=== PATIENT | female | born 1960 | race Caucasian/White ===

== ENCOUNTER → 2021-12-20 15:13 | Outpatient (CLI) | payer OTHER, SELFPAY ==
--- NOTE | ~2021-12-20 | DEXA_ITS ---
Bone Density Report Name: HA ERGALADO Age: 61 Sex: Female Ethnicity: White Date of : 1960 Indication: osteopenia; parental hip fracture; inflammatory bowel disease; history of glucocorticoids; postmenopausal Referring Provider: SIL OWENS Study: Bone densitometry was performed. Exam Date: December 20, 2021 Accession number: [id number] Bone Density: Region BMD T-score Z-score Classification AP Spine (L1-L4) 0.872 -1.6 -0.1 Osteopenia Femoral Neck (Left) 0.584 -2.4 -1.0 Osteopenia Total Hip (Left) 0.741 -1.6 -0.6 Osteopenia Femoral Neck (Right) 0.564 -2.6 -1.2 Osteoporosis Total Hip (Right) 0.711 -1.9 -0.9 Osteopenia Total Hip Mean 0.726 -1.8 -0.8 Osteopenia World Health Organization criteria for BMD impression classify patients as: Normal (T-score at or above -1.0), Osteopenia (T-score between -1.0 and -2.5), or Osteoporosis (T-score at or below -2.5). 10-year Fracture Risk: FRAX not reported because: Some T-score for Spine Total or Hip Total or Femoral Neck at or below -2.5 Previous Exams: Region Exam Age BMD T-score BMD Change BMD Change Date g/cm2 vs Baseline vs Previous AP Spine(L1-L4) 12/20/2021 61 0.872 -1.6 -0.087* 0.004 05/21/2018 57 0.868 -1.6 -0.091* -0.015 07/20/2015 54 0.884 -1.5 -0.075* -0.011 01/26/2013 52 0.894 -1.4 -0.065* -0.065* 12/14/2010 50 0.959 -0.8 Total Hip(Left) 12/20/2021 61 0.741 -1.6 -0.095* -0.007 05/21/2018 57 0.749 -1.6 -0.087* -0.046* 07/20/2015 54 0.795 -1.2 -0.041* 0.042* 01/26/2013 52 0.753 -1.5 -0.083* -0.083* 12/14/2010 50 0.836 -0.9 Total Hip(Right) 12/20/2021 61 0.711 -1.9 -0.072* -0.025 05/21/2018 57 0.736 -1.7 -0.047* -0.029* 07/20/2015 54 0.765 -1.4 -0.018 0.028* 01/26/2013 52 0.737 -1.7 -0.046* -0.046* 12/14/2010 50 0.783 -1.3 *Denotes significance at 95% confidence level, LSC for AP Spine = 0.022 g/cm2, LSC for Total Hip = 0.027 g/cm2 Clinical Information Provided by Patient: Parent has had a hip fracture Has taken Glucocorticoids Has used the following medications: Vitamin D, Calcium, MTV, LEVOTHYROXINE Has the following medical conditions: Inflammatory bowel diseases, ORAL PREDNISONE IN 1994 X 6 MONTHS FOR CHRONS Patient maximum height was 66.7 Menopause Age: 50 Drinks caffeinated b
== END ==
DX: K50.012 Crohn's disease of small intestine with intestinal obstruction (principal); M85.88 Other specified disorders of bone density and structure, other site; M85.852 Other specified disorders of bone density and structure, left thigh; M85.851 Other specified disorders of bone density and structure, right thigh; M81.0 Age-related osteoporosis without current pathological fracture
CPT/HCPCS: 77080

== ENCOUNTER 2024-10-19 09:59 | Outpatient (CLI) | payer OTHER, SELFPAY ==
--- NOTE | ~2024-10-19 | DEXA_ITS ---
Bone Density Report Name: HA REGALADO Age: 64 Sex: Female Ethnicity: White Date of : 1960 Indication: postmenopausal; screening for osteoporosis; parental hip fracture; inflammatory bowel disease; Referring Provider: UNKNOWN, UNKNOWN Study: Bone densitometry was performed. Exam Date: October 19, 2024 Accession number: [id number] Bone Density: Region BMD T-score Z-score Classification AP Spine(L1, L2, L3) 0.861 -1.4 0.2 Osteopenia Femoral Neck (Left) 0.601 -2.2 -0.8 Osteopenia Total Hip (Left) 0.741 -1.6 -0.5 Osteopenia Femoral Neck (Right) 0.595 -2.3 -0.8 Osteopenia Total Hip (Right) 0.767 -1.4 -0.3 Osteopenia Total Hip Mean 0.754 -1.5 -0.4 Osteopenia World Health Organization criteria for BMD impression classify patients as: Normal (T-score at or above -1.0), Osteopenia (T-score between -1.0 and -2.5), or Osteoporosis (T-score at or below -2.5). 10-year Fracture Risk(1): Major Osteoporotic Fracture 21% Hip Fracture 2.1% Reported Risk Factors: [place] (), Neck BMD=0.595, BMI=25.4, parental fracture (1) FRAX(R) Version 3.08. Fracture probability calculated for an untreated patient. Fracture probability may be lower if the patient has received treatment. Clinical Information Provided by Patient: Parent has had a hip fracture Has used the following medications: Vitamin D, Calcium Has the following medical conditions: Inflammatory bowel diseases Patient maximum height was 67 Menopause Age: 50 No regular weight bearing exercise Drinks caffeinated beverages Onset of menses at age 12 Number of children 2 Impression: The patient has low bone mass, based on the Right Femoral Neck T-score. The patient has an estimated ten-year risk of hip fracture of 2.1% and an estimated ten-year risk of major fracture of 21%, based on the WHO FRAX algorithm. The patient has risk factors, including: parental hip fracture. Discussion: BONE DENSITY IS LOW AT ONE OR MORE SKELETAL SITES. THE PATIENT'S BMD AND CLINICAL RISK FACTORS CONTRIBUTE TO THIS PATIENT'S INCREASED RISK OF FRACTURE. This patient's lowest T-score is low at one or more skeletal sites. It meets the World Health Organization's (WHO) criteria for ?low bone mass? (T-score between -1.0 and -2.5). The patient's 10-year risk of a major osteoporotic fracture as calculated by FRAX exceeds the threshold where pharmacological therapy is recommended by the National Osteoporosis Foundation (NOF). However, all treatment decisions require clinical judgment and consideration of individual patient factors, including patient preferences, comorbidities, previous drug use, risk factors not captured in the FRAX model (e.g., frailty, falls, vitamin D deficiency, increased bone turnover, interval significant decline in bone density) and possible under or overestimation of fracture risk by FRAX. The patient should follow a healthful lifestyle (good nutrition with adequate calcium and vitamin D, and appropriate weight-bearing exercise). Follow-Up: Consider a repeat BMD and Vertebral Fracture Assessment (VFA) exam in 2 years or sooner if medically necessary, to reassess this patient's status. Reported by: DEAN on 10/19/2024 10:48:00 AM. Reviewed, dictated and finalized at location A.
--- OUTSIDE RECORDS SUMMARY | 2024-10-19 10:05 | XMS_ITS | Encounter Summary ---
Author Organization [facility] Address [facility] [place] [address] Care Team Providers Care Make Up Editor Name Role Phone Christiane Woods NP Primary Care Provider [phone] Encounter Details Date Type Department Care Team (Late st Contact Info) Description 05/18/2024 [employer] Message Enc [facility] Family & Internal Medicine [facility] [id number] [place] [phone] Sara, [facility] Provider . Social History Tobacco Use Types Packs/Day Years Used Date Smoking Tobacco: Never Passive Smoke Exposure: Never Smokeless Tobacco: Never Alcohol Use Standard Drinks/Week Comments Yes 0 (1 standard drink = 0.6 oz pur e alcohol) Socially PHQ-2 Answer Date Recorded Patient Health Questionnaire-2 Score 0 04/29/2024 Comments No Sex and Gender Information Value Date Recorded Sex Assigned at Female 04/29/2024 11:43 AM COMPUTER AIDE Legal Sex Female 2:49 PM CDT Gender Identity Not on file Sexual Orientation Not on file documented as of this encounter Plan of Treatment Not on file documented as of this encounter Visit Diagnoses Not on filedocumented in this encounter Care Teams Make Up Editor Relationship Specialty Start Date End Date Christiane [place] [id number] [place] [phone] PCP - General Nurse Practitioner Family 02/24/23 documented as of this encounter
--- OUTSIDE RECORDS SUMMARY | 2024-10-19 10:05 | XMS_ITS | Clinical Summary ---
Author Organization [facility] [employer] Address [address] [place] [address] Care Team Providers Care Director Of Catering Name Role Phone Shiela Frankel MD [facility] Mims VEGETABLE HARVEST MACHINE OPERATOR-SEISMIC PLOTTER Primary Care Provider Source Comments [facility],non-owned Affiliates and Associated Physician Practices is amultiple site organization consisting of ambulatory clinics and hospital sitesin [place], [place], [place] and [place]. This disclosure is being madepursuant to the Care Everywhere program and may not contain all information available regarding this patient. Last updated 17.[facility] [employer] Allergies Active Allergy Reactions Criticality Noted Date Comments Amoxicillin Diarrhea Low 06/08/2019 Medications * Be aware that medications may not be up to date on this document. Alwaysverify current medications with the patient. MULTIPLE VITAMIN PO Take 1 tablet by mouth once daily 02/18/20 24 Active [place]-3 Fatty Acids (FISH OIL PO) Take 1,000 mg by mouth once daily Active Vitamin D3, cholecalciferol, 2000 UNITS tablet Take 1 (one) tablet by mouth once daily 2 tab ekmxt=2912 units 02/18/20 24 Active Misc Natural Products (TURMERIC CURCUMIN) Take 1 tablet by mouth once daily 02/18/20 24 Active calcium citrate TABS tablet Take 6 (six) tablets by mouth once daily 02/18/20 24 Active SYNTHROID 150 MCG tablet TAKE 1 TABLET BY MOUTH EVERY DAY 90 tablet 2 06/19/19 22 Active loratadine (Claritin) 10 MG tablet Take 1 (one) tablet by mouth once daily 02/18/20 24 Active Cyanocobalamin (VITAMIN B-12 1000 MCG) 1000 MCG SUBL Dissolve 1 tablet under the tongue once daily 02/18/20 24 Active risankizumab-rza a (Skyrizi) 360 MG/2.4ML SOCTIndications: Crohn's disease of both small and large intestine without complication (HCC) Inject 2.4 mL subcutaneously Every 8 Weeks 2.4 mL 6 04/12/19 25 Active Iron, Ferrous Sulfate, 325 (65 Fe) MG TABS Take 1 tablet by mouth once daily 02/18/20 24 025 Discontin ued(List Clean-Up) Active Problems Problem Noted Date Diagnosed Date Iron deficiency 09/07/2024 Mixed hyperlipidemia 06/18/2023 Right lateral epicondylitis 08/30/2022 Hypothyroid 09/18/2021 Lipoma 09/18/2021 Adhesive capsulitis of left shoulder 02/02/2021 Inflamed seborrheic keratosis 08/22/2018 Multiple benign melanocytic nevi of upper and lower extremities and trunk 08/22/2018 Lichen simplex chronicus 08/22/2018 Seborrheic keratosis 08/22/2018 Gastroesophageal reflux disease without esophagi tis 01/30/2018 Crohn's disease of both smal l and large intestine with other complication 10/27/2017 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 Rosacea 10/09/2012 Encounters Date Type Department Care Team Description 10/11/2024 1:00 PM CDT Procedure visit [facility] [address] [place] [address] Crohn's disease of both small and large intestine with other complication (HCC) ; Iron deficiency 10/11/2024 Travel 10/07/2024 12:30 PM CDT Procedure visit [facility] [address] [place] [address] Crohn's disease of both small and large intestine with other complication (HCC) ; Iron deficiency 10/07/2024 Travel 10/05/2024 Orders Only [facility] [address] [place] [address] Kathleen Samson, PharmKamlesh 10/04/2024 12:45 PM CDT Procedure visit [facility] [address] [place] [address] Crohn's disease of both small and large intestine with other complication (HCC) ; Iron deficiency 10/04/2024 Travel 09/30/2024 12:15 PM CDT Procedure visit [facility] [place] [address] Crohn's disease of both small and large intestine with other complication (HCC) ; Iron deficiency 09/30/2024 Travel 09/28/2024 2:00 PM CDT Procedure visit [facility] [place] [address] Crohn's disease of both small and large intestine with other complication (HCC) ; Iron deficiency 09/28/2024 Travel 09/08/2024 Travel 09/07/2024 Orders Only [facility] [address] [place] [address] Fay Cunningham APRN-SEISMIC PLOTTER 09/01/2024 Results Follow-Up [facility] [place] [place] [address] Zaynab Sommers MD 08/31/2024 11:30 AM CDT Office Visit [facility] [address] [place] [address] Zaynab Sommers MD Crohn's disease of colon with other complication (HCC) (Primary Dx); Medication monitoring encounter; Screening for osteoporosis; Iron deficiency anemia due to chronic blood loss; History of corticosteroid therapy 08/31/2024 Travel from Last 3 Months Immunizations Immunization Administration Dates Next Due Voltage Security primary monoval ent 12+ yr 0.3mL Purple cap 02/13/2021,04/28/2020,04/07/2020 FLU VACCINE QUAD IIV4 SPLIT 0.25 ML IM 02/04/2019 HEP A VACCINE, ADULT 11/23/2020,05/29/2020 INFLUENZA VACCINE 01/14/2024, 3,02/04/2019,2018 INFLUENZA VACCINE, QUADR. (F LUZONE; FLULAVAL; FLUARIX; AFLURIA QUADRIVALENT; 6MO+), 0.5 ML (IIV4) 02/06/2022,01/30/2021 PNEUMOCOCCAL PPSV23 05/29/2020 Pneumococcal Pcv13 Conj 06/25/2022 TDAP (7yrs+) 03/20/2021 ZOSTER HISTORIC VACCINE 11/12/2018 Zoster Hzv Vacc Recombinant Inj Im 02/04/2019, Family History Medical History Relation Name Comments Cancer - Breast Maternal Cousin 1 Cancer - Breast Maternal Cousin 2 2nd cou sin Cancer - Other Maternal Grandmother Asthma Neg Hx CVA Neg Hx Cancer - Skin, Melanoma Neg Hx Cancer - Skin, Non Melanoma Neg Hx Eczema Neg Hx Hemophilia Neg Hx Psoriasis Neg Hx Relation Name Status Comments Father Maternal Cousin 1 Maternal Cousin 2 Maternal Grandfather Maternal Grandmother Mother Paternal Grandfather Paternal Grandmother Social History Tobacco Use Types Packs/Day Years Used Date Smoking Tobacco: Never Passive Smoke Exposure: Never Smokeless Tobacco: Never Tobacco Cessation:Counseling Given: No Alcohol Use Standard Drinks/Week Comments Yes 2 (1 standard drink = 0.6 oz pur e alcohol) SOCIALLY AUDIT-C Answer Date Recorded Q1: How often do you have a drink containing alc ohol? Monthly or less 04/30/2022 Q2: How many drinks containi ng alcohol do you have on a typical day when you are drinking? 1 or 2 04/30/2022 Q3: How often do you have si x or more drinks on one occasion? Never 04/30/2022 Overall Financial Resource Strain (CARDIA) Answe r Date Recorded How hard is it for you to pa y for the very basics like food, housing, medical care, and heating? Not hard at all 04/30/2022 PHQ-2 Answer Date Recorded PHQ2 TOTAL SCORE 0 04/30/2022 [facility] - Occupational Stress Questionnaire Answer Date Recorded Do you feel stress - tense, restless, nervous, or anxious, or unable to sleep at night because your mind is troubled all the time - these days? Not at all 04/30/2022 Hunger Vital Sign Answer Date Recorded Within the past 12 months, y ou worried that your food would run out before you got the money to buy more. Never true 04/30/19 23 Within the past 12 months, t he food you bought just didn't last and you didn't have money to get more. Never true 04/30/2022 PRAPARE - Transportation Answer Date Re corded In the past 12 months, has l ack of transportation kept you from medical appointments or from getting medications? No 04/02 In the past 12 months, has l ack of transportation kept you from meetings, work, or from getting things needed for daily living? No 04/30/2022 Housing Stability Vital Sign Answer Axel e Recorded In the last 12 months, was t here a time when you were not able to pay the mortgage or rent on time? No 04/30/2022 In the last 12 months, how many places have you lived? 1 04/30/2022 In the last 12 months, was t here a time when you did not have a steady place to sleep or slept in a long-term (including now)? No 04/30/2022 Education Answer Date Recorded What is the highest level of school you have completed or the highest degree you have received? Associate degree: academic program 04/30/2022 Comments No Sex and Gender Information Value Date Recorded Sex Assigned at Female 02/05/2022 11:23 AM CEMENT CONTRACTOR Legal Sex Female 12:44 PM CDT Gender Identity Female 02/05/2022 11:23 AM CEMENT CONTRACTOR Sexual Orientation Straight 02/05/2022 11 :23 AM CEMENT CONTRACTOR Last Filed Vital Signs Vital Sign Reading Time Taken Comments Blood Pressure 124/87 10/11/2024 1:00 PM CDT Pulse 90 10/11/2024 1:00 PM CDT Temperature 36.6 C (97.9 F) 10/11/2024 1:00 PM CDT Respiratory Rate 16 10/11/2024 1:00 PM CDT Oxygen Saturation 98% 10/11/2024 1:00 PM CDT Inhaled Oxygen Concentration - - Weight 74 kg (163 lb 1.6 oz) 10/11/2024 1:00 PM CDT Height 170.2 cm (5' 7) 10/04/2024 12:28 PM CDT Body Mass Index 25.55 10/04/2024 12:28 PM CDT Plan of Treatment Upcoming Encounters Date Type Department Care Team (Late st Contact Info) Description 02/03/2025 3:10 PM CEMENT CONTRACTOR Office Visit [facility]atology [address] [place] [address], [facility] [place] [address] Cesilia Griffin MD [address] [place] [address] [address] [place] [address] 03/01/2025 11:30 AM CEMENT CONTRACTOR Office Visit [facility] [address] [place] [address] Zaynab Sommers MD [address] [place] [address] [place] [address] Health Maintenance Due Date Last Done Comments COLOGUARD (AGES 45-75) - COLON CA SCREENING 1960 CT COLONOGRAPHY - COLON CA SCREENING 1960 FIT - COLON CA SCREENING 1960 FLEX SIG - COLON CA SCREENING 1960 HIV SCREENING 07/28/1975 HEPATITIS C SCREENING 07/23/1978 Respiratory Syncytial Virus (RSV) Vaccine Pt: or over 60 yrs (1 - Risk 60-74 years 1-dose series) 2020 HEPATITIS A VACCINE (2 of 2 - Risk 2-dose series) 05/26/2021 11/23/2020, 05/29/2020 COVID-19 VACCINE ( season) 2023 02/13/2021, 04/28/2020, 04/07/2020 DEPRESSION SCREENING 03/31/2024 04/30/2022 INFLUENZA VACCINE (#1) 2024 , 02/06/2023, 02/06/2022, Additional history exists PAP with HPV 03/15/2025 03/15/2020 PNEUMOCOCCAL VACCINE 50+ (3 of 3 - PCV20 or PCV21) 05/29/2025 06/25/2022, 05/29/2020 MAMMOGRAM 03/30/2026 03/30/2024, 03/01, 03/26/2023, Additional history exists SCREENING FOR DIABETES 04/29/2027 , 04/29/2024, 03/02/2024, Additional history exists LIPID TESTING 06/08/2028 06/09/2023, 11/0 11/2021, 03/20/2021, Additional history exists COLON MONITORING 01/23/2031 01/23/2021, , 03/17/2018, Additional history exists COLONOSCOPY - COLON CA SCREENING 01/23/2031 01/23/2021, 01/23/2021, 03/17/2018, Additional history exists Colorectal Cancer Screening 01/23/2031 DTAP/TDAP/TD VACCINES (2 - Td or Tdap) 03/20/2031 03/20/2021 ZOSTER VACCINE Completed 02/04/2019, 10/29, 11/12/2018 HEPATITIS B VACCINE Aged Out No longe r eligible based on patient's age to complete this topic HIB VACCINE Aged Out No longer eligi ble based on patient's age to complete this topic HPV VACCINE Aged Out No longer eligi ble based on patient's age to complete this topic MENINGOCOCCAL (Group B) VACCINE SHARED DECISION-MAKING Aged Out No longer eligible based on patient's age to complete this topic MENINGOCOCCAL GROUPS A/C/Y/W VACCINE Aged Out No longer eligible based on patient's age to complete this topic Goals Goal Patient Goal Type Associated Problems Recent Progress Patient-Stated? Author Medication Management General On track( 023 8:07 AM CEMENT CONTRACTOR) Marcela Merritt RN Note: Expected end date: ongoing Interventions: Take all medications as prescribed Let your doctor know right away about any changes in your medications Make sure to request a refill of your medication at least one week prior to your last dose Safety General On track( 023 8:07 AM CEMENT CONTRACTOR) Monika Bishop, RN Note: Expected end date: ongoing Interventions: Be aware of medications that could predispose you to falling Keep personal items within easy reach Use some light at night in your room Procedures Procedure Name Priority Date/Time Associated Diagnosis Comments CALPROTECTIN FECAL Routine 09/08/2024 11 :53 AM CDT Crohn's disease of colon with other complication (HCC) C-REACTIVE PROTEIN Routine 08/31/2024 12 :08 PM CDT Crohn's disease of colon with other complication (HCC) Medication monitoring encounter Iron deficiency anemia due to chronic blood loss IRON + TIBC + FERRITIN Routine 08/31/2024 12:08 PM CDT Crohn's disease of colon with other complication (HCC) Medication monitoring encounter Iron deficiency anemia due to chronic blood loss MAMMO BILAT SCREENING W JULIANO Routine 03/30/2024 9:28 AM CEMENT CONTRACTOR Breast cancer screening by mammogram COMPREHENSIVE METABOLIC PANEL Routine 03/02/2024 11:05 AM CEMENT CONTRACTOR Crohn's disease of colon with other complication Immunosuppression Medication monitoring encounter Other specified intestinal malabsorption LIPID PROFILE Routine 03/20/2021 12:13 PM CEMENT CONTRACTOR Routine general medical examination at [facility] ENDOSCOPY, COLON, DIAGNOSTIC Routine 01/23/2021 11:13 AM CDT PAP IG LB +HPV APTIMA REFLEX 16,18/45 Routine 03/15/2020 11:38 AM CEMENT CONTRACTOR Well woman exam with routine gynecological exam from Last 3 Months or Most Recently Relevant to Health Maintenance Results * (ABNORMAL) CALPROTECTIN FECAL (09/08/2024 11:53 AM CDT) Calprotectin Fecal 143(H) mcg/g [facility] Comment: Reference Range: <50 Normal 50-120 Borderline >120 Elevated Calprotectin in Crohn's disease and ulcerative colitis can be five to several thousand times above the reference population (50 mcg/g or less). Levels are usually 50 mcg/g or less in healthy patients and with irritable bowel syndrome. Repeat testing in 4-6 weeks is suggested for borderline values. Test Performed at: [facility] [address] [place] [address] LUCI WOO MD,PHD,AMERICA Stool STOOL SPECIMEN / Unknown 09/08/2024 11:53 AM CDT 09/09/2024 4:57 AM CDT Zaynab Sommers MD LAB - BODY FLUID ORDERABL ES Final Result Performing Organization Address [facility] de Phone Number [address] [address] * (ABNORMAL) IRON + TIBC + FERRITIN (08/31/2024 12:08 PM CDT) Iron 34(L) 45 - 160 mcg/dL [facility] TIBC 439 250 - 450 mcg/dL (calc) [facility] % Saturation 8(L) 16 - 45 % (calc) [facility] Ferritin 12(L) 16 - 288 ng/mL [facility] Comment: Test Performed at: [facility] [address] [address] GINO IBRAHIM MD Blood BLOOD SPECIMEN / Unknown 08/31/2024 12:08 PM CDT 08/31/2024 12:08 PM CDT Zaynab Sommers MD LAB - CHEMISTRY ORDERABLE S Final Result Performing Organization Address [facility] Co de Phone Number [facility] [phone] [place] [phone] * C-REACTIVE PROTEIN (08/31/2024 12:08 PM CDT) C-Reactive Protein 5.6 <8.0 mg/L [facility] Comment: Test Performed at: [facility] [address] [address] GINO IBRAHIM MD Blood BLOOD SPECIMEN / Unknown 08/31/2024 12:08 PM CDT 08/31/2024 12:08 PM CDT us Zaynab Sommers MD LAB - CHEMISTRY ORDERABLE S Final Result [facility] [address] [place] [address] * Mammo Bilat Screening W Juliano (03/30/2024 9:28 AM CEMENT CONTRACTOR) Anatomical Region Laterality Modality Breast Bilateral Mammography 03/30/2024 9:37 AM CEMENT CONTRACTOR Impressions 03/30/2024 10:06 AM CEMENT CONTRACTOR IMPRESSION: No mammographic evidence of malignancy. RECOMMENDATION: Screening mammography in one year, pending no interval breast concerns. Patient will receive the examination results by lay letter. OVERALL ASSESSMENT: BI-RADS CATEGORY 1: NEGATIVE. Report dictated by William CEDILLO, FR (breast imaging fellow). Natali Lemus MD (residential framing carpenter) assisted in interpretation of this exam. I, Jada Alvarez MD, FACR have personally reviewed and interpreted this examination/study. > Interpreting Provider: Jada Alvarez MD, FACR on 03/30/2024 10:06 AM Narrative 03/30/2024 10:06 AM CEMENT CONTRACTOR EXAMINATIONS: BILATERAL DIGITAL SCREENING MAMMOGRAM AND BILATERAL BREAST TOMOSYNTHESIS LOCATION: [facility] EXAM DATE: 03/30/2024 HISTORY: Screening. Family history of breast cancer in maternal cousin. RISK ASSESSMENT CALCULATION: Patient completed a breast cancer risk assessment during her appointment 03/30/2024. Based upon the information she provided and her mammographic breast density, her lifetime risk of developing breast cancer is 9 % (Average Risk <15%; Intermediate / Moderate Risk 15-19; High Risk > 20%). Risk assessment based upon the BRCAPRO model. COMPARISON: Compare with prior breast imaging studies back to 02/10/2018, with the most recent dated 03/26/2023 from [facility]. TECHNIQUE: Tomosynthesis (3D) and reconstructed synthetic 2-D images acquired and reviewed in the bilateral craniocaudal and mediolateral oblique projections. A total of 5 images obtained. Transpara AI was utilized in the interpretation. BREAST PARENCHYMAL COMPOSITION: Category B: There are scattered areas of fibroglandular density. FINDINGS: There are no suspicious findings or evidence of malignancy on mammography. There is no significant change from the prior. Christiane Woods VEGETABLE HARVEST MACHINE OPERATOR-SEISMIC PLOTTER MAMMO ORDERABLES Final Result * COMPREHENSIVE METABOLIC PANEL (03/02/2024 11:05 AM CEMENT CONTRACTOR) Pathologist [facility] Glucose 97 65 - 99 mg/dL [facility] Comment: Fasting reference interval BUN 12 7 - 25 mg/dL [facility] Creatinine 0.60 0.50 - 1.05 mg/dL [facility] eGFR by Cystatin C 101 > OR = 60 mL/min/1. 73m2 [facility] BUN/Creatinine Ratio SEE NOTE: 6 - 22 (calc) [facility] Comment: Not Reported: BUN and Creatinine are within reference range. Sodium 142 135 - 146 mmol/L [facility] Potassium 4.5 3.5 - 5.3 mmol/L [facility] Chloride 103 98 - 110 mmol/L [facility] CO2 31 20 - 32 mmol/L [facility] Calcium 9.4 8.6 - 10.4 mg/dL [facility] Protein Total 6.6 6.1 - 8.1 g/dL [facility] Albumin 4.2 3.6 - 5.1 g/dL [facility] Globulin Total 2.4 1.9 - 3.7 g/dL (calc) [facility] Albumin/Globulin Ratio 1.8 1.0 - 2.5 (calc) [facility] Bilirubin Total 0.9 0.2 - 1.2 mg/dL [facility] Alkaline Phosphatase 82 37 - 153 U/L [facility] AST 18 10 - 35 U/L [facility] ALT 20 6 - 29 U/L [facility] Comment: Test Performed at: [facility] [address] [place] [address] GINO IBRAHIM MD Blood BLOOD SPECIMEN / Unknown 03/02/2024 11:05 AM CEMENT CONTRACTOR 03/02/2024 11:05 AM CEMENT CONTRACTOR Elke Comer VEGETABLE HARVEST MACHINE OPERATOR-SEISMIC PLOTTER LAB - CHEMISTRY ORDERABLES Final Result [facility] [address] [place] [address] * (ABNORMAL) LIPID PROFILE (03/20/2021 12:13 PM CEMENT CONTRACTOR) Pathologist [facility] Cholesterol Total 239(H) <200 mg/dL 03/20/2021 12:59 PM [facility] HDL 58 >40 mg/dL 03/20/2021 12:59 PM [facility] Comment: ATP III Classification of HDL Cholesterol: <40 mg/dL: Considered a major risk factor. >60 mg/dL: Considered a negative risk factor. LDL Calculated 137(H) <100 mg/dL 03/20/2021 12:59 PM [facility] Comment: ATP III Classification of LDL Cholesterol: <100 mg/dL: Optimal 100 - 129 mg/dL: Near Optimal/Above Optimal 130 - 159 mg/dL: Borderline High 160 - 189 mg/dL: High >190 mg/dL: Very High Triglycerides 222(H) <150 mg/dL 03/20/2021 12:59 PM [facility] Comment: ATP III Classification of Triglycerides: <150 mg/dL: Normal 150 - 199 mg/dL: Borderline High 200 - 400 mg/dL: High >500 mg/dL: Very High Blood BLOOD SPECIMEN / Unknown Lab Venipuncture / Unknown 03/20/2021 12:13 PM CEMENT CONTRACTOR 03/20/2021 12:27 PM [facility] us Luz Ulloa MD LAB - CHEMISTRY ORDER JABARI Final Result [facility] [address] [place] [id number], [facility] [phone] * ENDOSCOPY, COLON, DIAGNOSTIC (01/23/2021 11:13 AM CDT) Report Endoscopy POC Endoscopy Department Report _ Patient Name: Christina Spencer Procedure Date: 01/23/2021 11:13 AM Date of : 1960 Classification: Outpatient Gender: Female Ethnicity: Not or Race: White _ Providers: Good Charles MD, Markus Farrar (Fellow) Referring MD: Luz Ulloa (Referring MD) Procedure: Colonoscopy Indications: Determine extent and severity of inflammatory bowel disease Medications: Monitored Anesthesia Care Comorbidities Stricturing Crohn's ileitis Description of Procedure: Pre-Anesthesia Assessment: - Prior to the procedure, a History and Physical was performed, and patient medications and allergies were reviewed. The patient is competent. The risks and benefits of the procedure and the sedation options and risks were discussed with the patient. All questions were answered and informed consent was obtained. Patient identification and proposed procedure were verified by the physician and the nurse in the endoscopy suite. Mental Status Examination: alert and oriented. Airway Examination: normal oropharyngeal airway and neck mobility. Respiratory Examination: clear to auscultation. CV Examination: normal. Prophylactic Antibiotics: The patient does not require prophylactic antibiotics. Prior Anticoagulants: The patient has taken no previous anticoagulant or antiplatelet agents. ASA Grade Assessment: II - A patient with mild systemic disease. After reviewing the risks and benefits, the patient was deemed in satisfactory condition to undergo the procedure. The anesthesia plan was to use monitored anesthesia care (MAC). Immediately prior to administration of medications, the patient was re-assessed for adequacy to receive sedatives. The heart rate, respiratory rate, oxygen saturations, blood pressure, adequacy of pulmonary ventilation, and response to care were monitored throughout the procedure. The physical status of the patient was re-assessed after the procedure. After I obtained informed consent, the scope was passed under direct vision. Throughout the procedure, the patient's blood pressure, pulse, and oxygen saturations were monitored continuously. The [id number] was introduced through the anus and advanced to the terminal ileum, with identification of the appendiceal orifice and IC valve. The colonoscopy was performed without difficulty. The patient tolerated the procedure well. The quality of the bowel preparation was evaluated using the BBPS (Veblen Bowel Preparation Scale) with scores of: Right Colon = 2 (minor amount of residual staining, small fragments of stool and/or opaque liquid, but mucosa seen well), Transverse Colon = 3 (entire mucosa seen well with no residual staining, small fragments of stool or opaque liquid) and Left Colon = 3 (entire mucosa seen well with no residual staining, small fragments of stool or opaque liquid). The total BBPS score equals 8. Findings: The perianal and digital rectal examinations were normal. The terminal ileum contained a benign-appearing, intrinsic moderate fibrous stenosis, 1-2 cm above the IC valve and measuring less than one cm (in length) that was non-traversed. A TTS dilator was passed through the scope. Dilation with a 12 mm, a 13.5 mm and a 15 mm colonic balloon dilator was performed. The dilation site was examined and showed mild mucosal disruption. Unable to traverse area after dilation. The terminal ileum contained a single small ulcer just proximal to and not involving the area of stenosis. Biopsies were taken with a cold forceps for histology of the ulcer and the rest of the TI. The colon (entire examined portion) appeared normal. No colitis, ulcers or polyps seen. Biopsies not performed. The retroflexed view of the distal rectum and anal verge was normal and showed no anal or rectal abnormalities. Estimated Blood Loss: Estimated blood loss was minimal. Complications: No immediate complications. Estimated blood loss: Minimal. Impression: - A single ulcer in the terminal ileum. Biopsied. - Stricture in the terminal ileum. Dilated but could not be traversed.. - The entire examined colon is normal. - The distal rectum and anal verge are normal on retroflexion view. Recommendation: - Patient has a contact number available for emergencies. The signs and symptoms of potential delayed complications were discussed with the patient. Return to normal activities tomorrow. Written discharge instructions were provided to the patient. - Resume previous diet. - Continue present medications. - Await pathology results. - Repeat colonoscopy in 5 years for surveillance (adenomatous polyp present in 02/2020). - Return to GI clinic at appointment to be scheduled. Attending Participation: I was present and participated during the entire procedure, including non-cobb portions. Procedure Code(s): --- Professional --- 93113, Colonoscopy, flexible; with transendoscopic balloon dilation 35470, Colonoscopy, flexible; with biopsy, single or multiple Diagnosis Code(s): --- Professional --- K63.3, Ulcer of intestine K56.699, Other intestinal obstruction unspecified as to partial versus complete obstruction K52.3, Indeterminate colitis CPT copyright 2019 [employer]. All rights reserved. The codes documented in this report are preliminary and upon encephalographer review may be revised to meet current compliance requirements. _ Good Charles MD 01/23/2021 12:36:19 PM Note Initiated On: 01/23/2021 11:13 AM Number of Addenda: 0 [facility] [address] [place] [address] [facility] 01/23/2021 11:1 3 AM CDT us Good Charles MD GI PROCEDURE ORDERABLES Edite d Result - Final [facility] * PAP IG LB +HPV APTIMA REFLEX 16,18/45 (03/15/2020 11:38 AM CEMENT CONTRACTOR) Diagnosis [facility] ACCOUNT BILL Comment: NEGATIVE FOR INTRAEPITHELIAL LESION OR MALIGNANCY. CELLULAR CHANGES ASSOCIATED WITH ATROPHY ARE PRESENT. Specimen Adequacy [facility] ACCOUNT BILL Comment: Satisfactory for evaluation. Endocervical component may not be distinguished in cases of atrophy. Clinician Provided ICD10 [facility] ACCOUNT BILL Comment:Z01.419 Performed by [facility] ACCOUNT BILL Comment:Stacie Lomeli, Cytot echnologist (ASCP) Comment . [facility] ACCOUNT BILL Note [facility] ACCOUNT BILL Comment: The Pap smear is a screening test designed to aid in the detection of premalignant and malignant conditions of the uterine cervix. It is not a diagnostic procedure and should not be used as the sole means of detecting cervical cancer. Both false-positive and false-negative reports do occur. . IGLBP CPT Code Automation [facility] ACCOUNT BILL Comment: This liquid based ThinPrep(R) pap test was screened with the use of an image guided system. Human papillomavirus Aptima Negative Negative [facility] ACCOUNT BILL Comment: This nucleic acid amplification test detects fourteen high-risk HPV types (16,18,31,33,35,39,45,51,52,56,58,59,66,68) without differentiation. PART OF UTERINE CERVIX / Unknown 03/15/2020 11:38 AM CEMENT CONTRACTOR 03/16/2020 Narrative [facility] ACCOUNT BILL - 03/17/2020 3:08 PM CEMENT CONTRACTOR Source.............Cervix Other..............Post Menopausal No. of containers..01 ThinPrep Vial Resulting Agency Comment Lab Testing performed at: [facility] [place] [id number] us Luz Ulloa MD LAB - PATHOLOGY/CYTOL OGY ORDERABLES Final Result [facility] ACCOUNT BILL [address] [place] [address] from Last 3 Months or Most Recently Relevant to Health Maintenance Insurance [facility] Care Teams Director Of Catering Relationship Specialty Start Date End Date Christiane Woods, CALLUM-SEISMIC PLOTTER [address] [place] [phone] PCP - General Nurse Practitioner Family 01/23/24 Shiela Frankel MD Reclamation Worker Gastroenterology 03/20/21
--- OUTSIDE RECORDS SUMMARY | 2024-10-19 10:05 | XMS_ITS | Clinical Summary ---
Author Organization [facility] Address [address] [place] [address] Care Team Providers Care Coagulating Bath Operator Name Role Phone Christiane Woods Carolyn NEUROSCIENCE SPECIALIST Primary Care Provider [phone] Allergies Active Allergy Reactions Criticality Noted Date Comments Amoxicillin Diarrhea Low 06/08/2019 Medications Misc Natural Products (TURMERIC CURCUMIN) capsule Take by mouth daily. Active Darfur-3 Fatty Acids (FISH OIL CONCENTRATE) 1000 MG Cap daily. Active Multiple Vitamins-Iron (DAILY VITAMIN FORMULA+IRON OR) daily. Act fredrick Calcium Carbonate-Vitamin D (CALCIUM 600 + D OR) daily. Active Vitamin D3 (VITAMIN D) 50 mcg tablet Take by mouth 2 (two) times a day. Active Cobalamin Combinations (B-12) 100-5000 MCG SL Tab 06/11/19 24 Active SKYRIZI 360 MG/2.4ML body injector Inject 2.4 mLs (360 mg total) into the skin. 04/12/19 25 Active loratadine (CLARITIN) 10 MG tablet Take 1 tablet (10 mg total) by mouth daily. 02/18/20 24 Active Coenzyme Q10 (COQ10) 30 MG Cap Ac tive albuterol sulfate HFA 108 (90 Base) MCG/ACT inhalerIndications :Bronchitis,Wheezi ng Inhale 2 puffs into the lungs every 6 (six) hours as needed for Wheezing. 18 g 08/05/19 25 Active cefdinir (OMNICEF) 300 MG Cap capsuleIndications :Bronchitis,Wheezi ng Take 1 capsule (300 mg total) by mouth 2 (two) times daily. 20 capsule 08/05/19 25 Active levothyroxine (SYNTHROID) 150 MCG tabletIndications: Acquired hypothyroidism TAKE 1 TABLET(150 MCG) BY MOUTH EVERY MORNING 90 tablet 1 10/15/19 25 Active levothyroxine (SYNTHROID) 150 MCG tabletIndications: Acquired hypothyroidism Take 1 tablet (150 mcg total) by mouth every morning. 90 tablet 1 04/21/19 25 025 Discontinued Active Problems Problem Noted Date Diagnosed Date Mixed hyperlipidemia 06/18/2023 Overweight (BMI 25.0-29.9) 06/18/2023 Right lateral epicondylitis 08/30/2022 Hypothyroid 09/18/2021 Lipoma 09/18/2021 Adhesive capsulitis of left shoulder 02/02/2021 Inflamed seborrheic keratosis 08/22/2018 Lichen simplex chronicus 08/22/2018 Multiple benign melanocytic nevi of upper and lower extremities and trunk 08/22/2018 Gastroesophageal reflux disease without esophagi tis 01/30/2018 Crohn's disease of both smal l and large intestine without complication ([facility]) 10/27/2017 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 Rosacea 10/09/2012 Encounters Date Type Department Care Team Description 08/04/2024 9:20 AM CDT Office Visit [facility] Family & Internal Medicine [address] [address] Ghada Villagomez, [place] Cough (Chest hurting to cough, congestion, runny nose-x 5 days-some fatigue) 08/04/2024 Travel from Last 3 Months Immunizations Immunization Administration Dates Next Due Fluzone 6 Months+ Quad (0.5 mL Prefilled Syringe) 02/06/2022 Hepatitis A (Havrix [address]) 11/23/2020,2020 Influenza (Generic) 01/14/2024,04/30/2018 Influenza Adult (Generic) 02/06/2023,01/30/2021, 02/04/2019 PFIZER COVID-19 (ORIGINAL FO RMULATION, PURPLE CAP) mRNA, LNP-S, PF, 30 MCG/0.3 ML DOSE 02/13/2021,04/28/2020,04/07/2020 Pneumococcal (Pneumovax 23) 05/29/2020 Pneumococcal (Prevnar 13) 06/25/2022 Shingrix 02/04/2019,11/12/2018 Tdap (Generic) 03/20/2021 Family History Medical History Relation Comments Diabetes Father Heart Disease Father Kidney Disease Father From diabetes Cancer Maternal Grandfather 1st cousin and 2nd cousin breast CA mother's side Cancer Maternal Grandmother Heart Disease Mother Diabetes Paternal Grandmother Relation Status Comments Father Alive Maternal Grandfather Alive Maternal Grandmother Mother Paternal Grandmother Alive Social History Tobacco Use Types Packs/Day Years Used Date Smoking Tobacco: Never Passive Smoke Exposure: Never Smokeless Tobacco: Never Tobacco Cessation:Counseling Given: No Alcohol Use Standard Drinks/Week Comments Yes 0 (1 standard drink = 0.6 oz pur e alcohol) Socially PHQ-2 Answer Date Recorded Patient Health Questionnaire-2 Score 0 04/29/2024 Comments No Sex and Gender Information Value Date Recorded Sex Assigned at Female 04/29/2024 11:43 AM BOARDING SPECIALIST Legal Sex Female 2:49 PM CDT Gender Identity Not on file Sexual Orientation Not on file Last Filed Vital Signs Vital Sign Reading Time Taken Comments Blood Pressure 120/79 08/04/2024 9:18 AM CDT Pulse 117 08/04/2024 9:18 AM CDT Temperature 36.7 C (98.1 F) 08/04/2024 9:18 AM CDT Respiratory Rate 20 08/04/2024 9:18 AM CDT Oxygen Saturation 100% 08/04/2024 9:18 AM CDT Inhaled Oxygen Concentration - - Weight 73.8 kg (162 lb 12.8 oz) 08/04/2024 9:18 AM CDT Height 169.5 cm (5' 6.75) 08/04/2024 9:18 AM CD T Body Mass Index 25.69 08/04/2024 9:18 AM CDT Plan of Treatment Health Maintenance Due Date Last Done Comments Annual Physical 10/23/2024 10/24/2023, 09/29, 02/06/2022 Colorectal Cancer Screening Colonoscopy (10 Years) 11/05/2024 COVID-19 Vaccine () 05/03/2025 02/13/2021, 04/28/2020, 04/07/2020 Postponed from 11/30/2023 (Patient Refused) Mammogram Screening 03/30/2026 03/30/2024, 03/26/2023, 03/26/2023, Additional history exists Cervical Cancer Screening Pap Smear (Age 30 to 64) Every 3 Years 10/23/2026 10/24/2023, 10/22/2022 Pneumococcal Vaccine: 50+ Years (3 of 3 - PCV20 or PCV21) 06/26/2027 06/25/2022, 05/29/2020 Cervical Cancer Screening Pap with HPV Testing (Age 30 to 64) Every 5 Years 10/23/2028 10/24/2023, 10/22/2022 Cervical Cancer Screening with HPV 10/23/2028 DTaP, Tdap and Td Vaccines (2 - Td or Tdap) 03/20/2031 03/20/2021 RSV Immunization or 60+ Years (1 - 1-dose 75+ series) 07/28/2035 Zoster Vaccines Completed 02/04/2019, 11/12/2018 Hepatitis C Completed 03/02/2024, 11/28/2022 PHQ-2 (Physician Ewing) Completed 04/29/2024 Meningococcal B Vaccine Aged Out No l onger eligible based on patient's age to complete this topic Meningococcal Vaccine Aged Out No low mason eligible based on patient's age to complete this topic RSV Immunizations Under 20 Months Aged Out No longer eligible based on patient's age to complete this topic Procedures Procedure Name Priority Date/Time Associated Diagnosis Comments THINPREP PAP W AGE BASED SCREENING PROTOCOLS Routine 10/24/2023 9:42 AM CDT Well woman exam with routine gynecological exam Encounter for screening for human papillomavirus (HPV) MAMMOGRAM GENERIC (SCAN ORDER) 03/26/2023 from Last 3 Months or Most Recently Relevant to Health Maintenance Results * THINPREP PAP W AGE BASED SCREENING ([facility] ONLY) (10/24/2023 9:42 AM CDT) Comment: [place] Comment: This order for age-based cervical cancer and STI screening follows ACOG guidelines(PB 168, 140, SWU585). See individual assays for performing site location. CLINICAL INFORMATION: None given [facility] [place] Clinical Information: NONE GIVEN [facility] [place] Date of Last Pap NONE GIVEN [facility] [place] Previous Biopsy? NONE GIVEN [place] SOURCE (QST) Endocervix [place] STATEMENT OF ADEQUACY: SATISFACTORY FOR EVALUATION [place], [place] PAP INTERPRETATION/RES ULTS [place], [place] Comment: Cytology Results: Negative for intraepithelial lesion or malignancy. Atrophic pattern; predominantly parabasal cells COMMENT: This Pap test has been evaluated with computer assisted technology. [place], [place] KEYMODULE ASSEMBLY SUPERVISOR [place] Comment: NANCY CT(ASCP) CT screening location: [place] [address] [place] [address] COMMENT: [facility] [place] Comment: EXPLANATORY NOTE: The Pap is a screening test for cervical cancer. It is not a diagnostic test and is subject to false negative and false positive results. It is most reliable when a satisfactory sample, regularly obtained, is submitted with relevant clinical findings and history, and when the Pap result is evaluated along with historic and current clinical information. HPV MRNA E6/E7 Not Detected Not Detected [facility] Comment: Methodology: [employer] Floorperson-Mediated Amplification This assay detects E6/E7 viral messenger RNA (mRNA) from 14 high-risk HPV types (16,18,31,33,35,39,45,51,52,56,58,59,66,68). Cervical sources are required for HPV testing. If a vaginal source from a patient who has had a total hysterectomy with removal of cervix was submitted, please contact the testing laboratory for alternative testing options. For additional information, please refer to http://education.Grovac.iCeutica/faq/LTO604u6 (This link if provided for information/ educational purposes only.) 10/24/2023 9:42 AM CDT 10/25/2023 2:40 AM CDT Narrative Resulting Agency Comment Performing Organization Information: Site ID: [place] Name: [facility] Address: [address] [place], [place] [address] [address] Director: Froylan Gant MD Site ID: [place] Name: [facility] Address: [address] [place] [address] Director: Froylan Gant Christiane Woods NP PATHOLOGY/CYTOLOGY ORDERABLE S Final Result [facility] [place] [address] [place] [address], [facility] [place] [address] [place] [address], [place] * MAMMOGRAM GENERIC (03/26/2023) Anatomical Region Laterality Modality Other 03/26/2023 [facility] Scanned SCANNING Final Resu lt from Last 3 Months or Most Recently Relevant to Health Maintenance Insurance [facility] Care Teams Coagulating Bath Operator Relationship Specialty [place] [address] [facility] [address] [place] [address] PCP - General Nurse Practitioner Family 02/24/23
--- OUTSIDE RECORDS SUMMARY | 2024-10-19 10:05 | XMS_ITS | Encounter Summary ---
Author Organization [facility] Address [address] [facility] [address] Care Team Providers Care Ocean Lifeguard Name Role Phone Robby Doherty MD Primary Care Provider Luz Ulloa MD Primary Care Provide r Luz Ulloa MD Unavailable [phone] Shiela Frankel MD Unavailable Unavailab Ghada Bauer PA-C Primary Care Provider [phone] Christiane Woods DIRECTOR ORANGE-FIRE SAFETY MANAGER Primary Care Provider Reason for Visit * Reason Onset Date Comments MEDICATION REFILL 11/16/2018 Encounter Details Date Type Department Care Team (Late st Contact Info) Description 11/16/2018 Refill [facility] [address] [place] [address] Robby Doherty MD [address] [facility] [address] [place] [address] MEDICATION REFILL Social History Tobacco Use Types Packs/Day Years Used Date Smoking Tobacco: Never Smokeless Tobacco: Never Alcohol Use Standard Drinks/Week Comments Yes 3 (1 standard drink = 0.6 oz pur e alcohol) 3-4 light beer per week Comments No Sex and Gender Information Value Date Recorded Sex Assigned at Female 02/05/2022 11:23 AM GAS METER INSTALLER Legal Sex Female 12:44 PM CDT Gender Identity Female 02/05/2022 11:23 AM GAS METER INSTALLER Sexual Orientation Straight 02/05/2022 11 :23 AM GAS METER INSTALLER documented as of this encounter Plan of Treatment Upcoming Encounters Date Type Department Care Team (Late st Contact Info) Description 02/03/2025 3:10 PM GAS METER INSTALLER Office Visit [facility] - Dermatology [address] [place] [address], [facility] [place] [phone] Cesilia Griffin MD [address] [place] [address] [place] [phone] 03/01/2025 11:30 AM GAS METER INSTALLER Office Visit [facility] - GI [facility] [place] [phone] Zaynab Sommers MD [address] [place] [address] [place] [phone] documented as of this encounter Goals Goal Patient Goal Type Associated Problems Recent Progress Patient-Stated? Author Medication Management General On track( 023 8:07 AM GAS METER INSTALLER) Marcela Merritt, RN Note: Expected end date: ongoing Interventions: Take all medications as prescribed Let your doctor know right away about any changes in your medications Make sure to request a refill of your medication at least one week prior to your last dose documented as of this encounter Visit Diagnoses Not on filedocumented in this encounter Care Teams Ocean Lifeguard Relationship Specialty Start Date End Date Robby Doherty MD [address] [place] [phone] PCP - General Internal Medicine 12/23/12 06/07/19 Luz Ulloa MD [address] [place] [address] PCP - General Family Medicine 06/08/19 03/04/22 Luz Ulloa MD [address] [place] [phone] PCP - Attributed-[facility] ST[facility] 09/29/19 09/16/22 Ghada Villagomez, PA-C [address] [place] [address] PCP - General 03/05/22 01/22/24 Christiane Woods, CALLUM-FIRE SAFETY MANAGER [address] [place] [phone] PCP - General Nurse Practitioner Family 01/23/24 Shiela Frankel MD [address] [place] [address] [employer]p [employer] Gastroenterology 03/20/21 documented as of this encounter
== END 2024-10-19 10:00 | disposition home or self-care (01) ==
LOC: ANHIMG 10:00
DX: M85.89 Other specified disorders of bone density and structure, multiple sites (principal); K50.118 Crohn's disease of large intestine with other complication; Z13.820 Encounter for screening for osteoporosis
CPT/HCPCS: 77080